=== PATIENT | female | born 1975 | race Caucasian/White ===

== ENCOUNTER → 2024-01-26 12:30 | Outpatient (REF) | payer MEDICARE, OTHER, SELFPAY | LOC: HWRAD 12:30 | PROVIDERS: ATTENDING PHYSICIAN Specialist; FAMILY PHYSICIAN Family Medicine | DX: R51.9 Headache, unspecified (principal) | CPT/HCPCS: 70470; Q9967 ==

== ENCOUNTER 2024-04-17 13:53 | Emergency (ER) | payer MEDICARE, OTHER, SELFPAY ==
[2024-04-17 13:56] VITALS: BP 125/85
--- NOTE | 2024-04-17 16:53 | ED.GENMED ---
History of Present Illness
<Romi Valles MD, Resident - Last Filed: 04/17/24 17:09>
General
Chief Complaint: Fall
Time Seen by Provider: 04/17/24 16:17
History of Present Illness
History of Present Illness:
48-year-old female with past medical history of POTS and seizure presenting with right ankle pain and swelling. Patient does not recall how the fall occurred. Denies chest pain, abdominal pain, neck pain, headache, nausea/vomiting. Had seen
neurologist (Dr. Zaragoza) for adjustment of seizure medications this past . Notes has been compliant with her medications.
Pt had back surgery 2 weeks ago without any complications.
Past History
<Romi Valles MD, Resident - Last Filed: 04/17/24 17:09>
Past History
ED Past Medical History: Arrthythmia (Complete heart block and with pacer), Asthma, Seizures (Tonic clonic) and Other (POTS, chronic pain, low testosteronism, fibromyalgia)
ED Past Surgical History: Gynecological (hysterectomy 2021) and Orthopedic (spinal surgery 2 weeks ago)
Social History
Tobacco: Non-smoker
Review of Systems
<Romi Valles MD, Resident - Last Filed: 04/17/24 17:09>
Review of Systems
Constitutional: Reports no symptoms
EENT: Reports no symptoms
Respiratory: Reports no symptoms
Cardiac: Reports no symptoms
ABD/GI: Reports no symptoms
: Reports no symptoms
Musculoskeletal: Reports other (right ankle pain)
Skin: Reports no symptoms
Neurological: Reports other (does not remember what happened today)
Phy Exam
<Romi Valles MD, Resident - Last Filed: 04/17/24 17:09>
Physical Exam
Physical Exam:
GENERAL: Alert, in no apparent distress
EYE: pupils equal and reactive
NECK: Supple, no significant adenopathy.
ENT: o/p clr, mmm.
CARDIAC: Regular rate and rhythm.
LUNGS: Clear breath sounds bilaterally, no acute respiratory distress, no wheezes/rales/rhonchi
ABDOMEN: Soft, without focal tenderness, no r/g, no cvat
NEUROLOGICAL: Alert and oriented, no focal neuro deficits
SKIN: Warm and dry, skin intact.
MUSCULOSKELETAL: Right ankle tenderness (lateral) and swelling. No hip tenderness, no focal spine tenderness.
PSYCH: Normal and appropriate interaction.
Course
<Romi Valles MD, Resident - Last Filed: 04/17/24 17:09>
Orders/Labs/Results
Orders:
Orders
04/17/24 14:02
CT Head W/o Iv Contrast Urgent
Comment:
Reason For Exam: head injury with memory loss
04/17/24 14:03
CR Ankle - Right Min 3 Views * Urgent
Comment:
Reason For Exam: Injury
04/17/24 16:50
Air Splint Right-Treatment ONCE
Crutches-Treatment ONCE
Oxycodone/Acetaminophen [Percocet 5/325] 1 tablet PO NOW STA
04/17/24 16:52
Electrocardiogram (*1) Urgent
Reason for Study: Syncope
EKG- Treatment ONCE
Orthostatic VS- Treatment ONCE
04/17/24 17:15
Complete Blood Count/With Diff Urgent
Comprehensive Metabolic Panel Urgent
04/17/24 18:08
0.9% Sodium Chloride 1000 ml [Nss] 1,000 ml IV BOLUS
Abnormal Lab Results
04/17/24
17:15
RBC 3.74 L 10^6/uL
(4.20-5.40)
Hgb 10.4 L g/dL
(12.0-16.0)
Hct 33.2 L %
(37.0-47.0)
MCHC 31.3 L g/dL
(33.0-37.0)
Absolute Monos (auto) 0.7 H 10^3/uL
(0.1-0.6)
Chloride 108 H mmol/L
(98-107)
04/17/24 17:15
04/17/24 17:15
Vital Signs
Initial and Last Documented VS:
Initial Vital Signs
Temp Pulse Resp BP Pulse Ox
98.8 F 88 16 125/85 100
04/17/24 13:56 04/17/24 13:56 04/17/24 13:56 04/17/24 13:56 04/17/24 13:56
Last Documented Vital Signs
Temp Pulse Resp BP Pulse Ox
98.8 F 85 16 125/85 98
04/17/24 13:56 04/17/24 18:10 04/17/24 13:56 04/17/24 13:56 04/17/24 16:25
<J Carlos Howe, DO - Last Filed: 04/17/24 18:17>
Orders/Labs/Results
Orders:
Orders
04/17/24 14:02
CT Head W/o Iv Contrast Urgent
Comment:
Reason For Exam: head injury with memory loss
04/17/24 14:03
CR Ankle - Right Min 3 Views * Urgent
Comment:
Reason For Exam: Injury
04/17/24 16:50
Air Splint Right-Treatment ONCE
Crutches-Treatment ONCE
Oxycodone/Acetaminophen [Percocet 5/325] 1 tablet PO NOW STA
04/17/24 16:52
Electrocardiogram (*1) Urgent
Reason for Study: Syncope
EKG- Treatment ONCE
Orthostatic VS- Treatment ONCE
04/17/24 17:15
Complete Blood Count/With Diff Urgent
Comprehensive Metabolic Panel Urgent
04/17/24 18:08
0.9% Sodium Chloride 1000 ml [Nss] 1,000 ml IV BOLUS
Abnormal Lab Results
04/17/24
17:15
RBC 3.74 L 10^6/uL
(4.20-5.40)
Hgb 10.4 L g/dL
(12.0-16.0)
Hct 33.2 L %
(37.0-47.0)
MCHC 31.3 L g/dL
(33.0-37.0)
Absolute Monos (auto) 0.7 H 10^3/uL
(0.1-0.6)
Chloride 108 H mmol/L
(98-107)
04/17/24 17:15
04/17/24 17:15
Vital Signs
Initial and Last Documented VS:
Initial Vital Signs
Temp Pulse Resp BP Pulse Ox
98.8 F 88 16 125/85 100
04/17/24 13:56 04/17/24 13:56 04/17/24 13:56 04/17/24 13:56 04/17/24 13:56
Last Documented Vital Signs
Temp Pulse Resp BP Pulse Ox
98.8 F 85 16 125/85 98
04/17/24 13:56 04/17/24 18:10 04/17/24 13:56 04/17/24 13:56 04/17/24 16:25
<Romi Valles MD, Resident - Last Filed: 04/17/24 17:09>
MDM/Problems Addressed
Differential Diagnosis Includes:
Right ankle fracture after fall. Etiology of fall is unclear - ddx include seizure vs POT vs arrythmia
48 y/o f with past history of seizueres, and POTS presenting with rx ankle tenderness and swelling:
# Right ankle fracture
- Xray: Acute nondisplaced transverse fracture of the distal right fibula
- OP f/u with ortho
- Pain management
- Splint
# Head injury?
- CT head
Acute Exacerbation and/or Progression of Chronic Illness:
POTS, seizure
<Romi Valles MD, Resident - Last Filed: 04/17/24 17:09>
*Critical Care Note
Total Time (30-74mins, 75-104mins- exclusive of procedures): Not Applicable
<J Carlos Howe, DO - Last Filed: 04/17/24 18:17>
Update Note
Update Note:
610p orthostatics noted labs noted will hydrate reeval
ED Attending Note
<Romi Valles MD, Resident - Last Filed: 04/17/24 17:09>
-
Portions of this chart may have been created with voice recognition software.� Occasional wrong word or��sound alike� substitutions may have occurred due to the inherent limitations of voice recognition software.
<J Carlos Howe, DO - Last Filed: 04/17/24 18:17>
ED Attending Note
Patient seen and examined by attending physician: Yes
I performed a history and physical exam of patient and discussed management with resident, I reviewed resident's note and agree with documented findings and plan of care.: Yes
ED Attending Note:
48 female POTS seizure disorder fall ankle fracture happened earlier today, will check EKG, CT of the head states she has been compliant with her Keppra and Topamax
Discharge Plan
Departure
Patient with high blood pressure during this ER visit?: No
Condition: Good
Instructions: Ankle Fracture ED, Fainting, Adult ED
Prescriptions:
New
oxycodone-acetaminophen [Percocet] 5-325 mg tablet
1 tab PO Q6HPRN PRN (Reason: pain) Qty: 14 0RF
oxycodone 10 mg tablet
10 mg PO Q8H PRN (Reason: Pain) Qty: 10 0RF
No Action
sennosides [Senokot] 8.6 mg Tablet
8.6 mg PO BID
polyethylene glycol 3350 [ClearLax] 17 gram Powder In Packet
8.5 g PO DAILY
clonazepam [Klonopin] 1 mg Tablet
1 mg PO BID
amitriptyline 25 mg Tablet
25 mg PO HS
pantoprazole 40 mg Tablet,Delayed Release (Dr/Ec)
40 mg PO DAILY
pyridostigmine bromide [Mestinon] 60 mg Tablet
120 mg PO DAILY
pyridostigmine bromide [Mestinon] 60 mg Tablet
60 mg PO HS
indomethacin 25 mg Capsule
25 mg PO QID
gabapentin 100 mg Capsule
100 mg PO BID
oxycodone-acetaminophen 7.5-325 mg Tablet
1 tab PO Q6H PRN (Reason: severe pain)
albuterol sulfate [ProAir HFA] 90 mcg/actuation Hfa Aerosol Inhaler
2 puff INHALATION Q6H PRN (Reason: shortness of breath/wheeze)
nortriptyline 50 mg Capsule
100 mg PO HS
escitalopram oxalate [Lexapro] 20 mg Tablet
20 mg PO BID
aripiprazole [Abilify] 2 mg Tablet
2 mg PO HS
levocetirizine [Xyzal] 5 mg Tablet
5 mg PO HS
levetiracetam [Keppra XR] 500 mg Tablet Extended Release 24 Hr
1,000 mg PO BID
Linzess 290 mcg Capsule
290 mcg PO DAILY
Emgality Syringe 120 mg/mL Syringe
120 mg SC QMONTH
montelukast [Singulair] 10 mg tablet
10 mg PO HS
metoprolol tartrate 25 mg Tablet
25 mg PO BID 30 Days Qty: 60 1RF
Referrals:
Cj Cornejo MD [Active] - Next open appointment
Tirso Taylor DO [Family Provider] -
Interventions
Interventions:
*Risk Screen - Suicide Last Done: 04/17/24 16:24
*General Assessment Last Done: 04/17/24 16:24
*Neglect/Abuse Screening Last Done: 04/17/24 16:24
ED- Fall Risk Assessment Last Done: 04/17/24 16:24
*ED COVID-19 Vaccine History Last Done: 04/17/24 16:24
ED-Musculoskeletal Assessment Last Done: 04/17/24 16:24
ED- Neurological Assessment Last Done: 04/17/24 16:24
ED-Skin Assessment Last Done: 04/17/24 16:24
Discharge Date and Time
Print Language: KITTITIAN
[2024-04-17] MEDS: PERCOCET 5/325 1 TABLET PO (17:07)
[2024-04-17 17:31] LABS: % Basophils 0.8 % (0-2); % Eosinophils 2.5 % (0-6); % Immature Granulocytes 0.4 % (0-0.5); % Lymphocytes 25.6 % (20.5-51.1); % Monocytes 8.7 % (1.7-9.3); Absolute Basophils 0.1 10^3/uL (0-0.2); Absolute Eosinophils 0.2 10^3/uL (0-0.7); Absolute Monocytes 0.7 10^3/uL (0.1-0.6); Absolute Neutrophils 4.9 10^3/uL (1.4-6.5); Hematocrit 33.2 % (37.0-47.0); Hemoglobin 10.4 g/dL (12.0-16.0); Mean Corp Hgb Conc. 31.3 g/dL (33.0-37.0); Mean Corpuscular Hgb 27.8 pg (27.0-31.0); Mean Corpuscular Volume 88.8 fL (81.0-99.0); Mean Platelet Volume 8.3 fL (7.4-10.4); Nucleated Red Blood Cells % 0 %; Platelet Count 241 10^3/uL (130-400); Red Blood Cell Count 3.74 10^6/uL (4.20-5.40); Red Cell Dist. Width 14.3 % (11.5-14.5); White Blood Cell Count 7.9 10^3/uL (4.8-10.8)
[2024-04-17 17:46] LABS: ALT (SGPT) 16 U/L (0-35); AST (SGOT) 16 U/L (14-36); Albumin 3.9 g/dl (3.5-5.0); Alkaline Phosphatase 89 U/L (38-126); Blood Urea Nitrogen 14 mg/dl (7-17); Calcium 9.2 mg/dl (8.4-10.2); Carbon Dioxide 26 mmol/L (22-30); Chloride 108 mmol/L (98-107); Glucose 99 mg/dl (70-99); Potassium 4.5 mmol/L (3.5-5.1); Sodium 142 mmol/L (135-145); Total Bilirubin 0.3 mg/dl (0.2-1.3); Total Protein 6.4 g/dl (6.3-8.2); eGFR > 60.00
[2024-04-17 18:02] VITALS: BP 115/81; BP 130/84; BP 83/47; PULSE 127; PULSE 85; PULSE 87
[2024-04-17] MEDS: NSS 1000 IV (18:16)
[2024-04-17 18:30] VITALS: BP 114/84
[2024-04-17 18:45] VITALS: BP 108/85
[2024-04-17 20:00] VITALS: BP 111/82
== END 2024-04-17 20:09 | disposition home or self-care (01) ==
LOC: EMR 13:53
PROVIDERS: EMERGENCY PHYSICIAN Emergency Medicine; FAMILY PHYSICIAN Family Medicine
DX: S82.891A Other fracture of right lower leg, initial encounter for closed fracture (principal); X58.XXXA Exposure to other specified factors, initial encounter; G90.A Postural orthostatic tachycardia syndrome [POTS]; G40.909 Epilepsy, unspecified, not intractable, without status epilepticus; I44.2 Atrioventricular block, complete; J45.909 Unspecified asthma, uncomplicated; M79.7 Fibromyalgia; R55 Syncope and collapse; Z90.710 Acquired absence of both cervix and uterus
CPT/HCPCS: 99284; 70450; 73610; 80053; 85025; 93005